=== PATIENT | male | born 1985 | race Caucasian/White ===

== ENCOUNTER 2017-02-15 14:32 | Emergency (ER) | payer MEDICAID ==
[~2017-02-15] VITALS: Ht 182.9 cm; Wt 108.9 kg
[~2017-02-15 14:32] MED LIST: COLACE100 M1 PO; COLACE100 MG PO; FLAGYL250 M1 PO; FLORASTOR250 MG PO; Insulin Aspart, Recombinant SUBQ; METFORMIN HCL500 MG PO; NORCO 5/325 MG1 TAB PO; REGLAN5 M1 PO
[2017-02-15 14:36] VITALS: BP 134/57
--- NOTE | 2017-02-15 16:30 | NUR ---
Pt taken to bed 8.
--- NOTE | 2017-02-15 16:44 | NUR ---
31/M presents to ED for evaluation of right hand laceration. Pt states he cut his hand with fiber glass. Patient states "I think there is some still in there. I can see it." Patient has no active bleeding at this time. Pt c/o 06/23 pain. Pt is AOX4, ambulatory with steady gait. VSS.
--- NOTE | 2017-02-15 17:36 | NUR ---
Patient being evaluated by physician at bedside.
[2017-02-15] MEDS ORDERED: LIDOCAINE 1% 500 MG/50 ML VIAL INJ ONE (17:40)
[2017-02-15] MEDS ORDERED: LIDOCAINE 1% ED 50 ML ONE (17:43)
--- NOTE | 2017-02-15 17:45 | NUR ---
WOUND SUTURED BY ERMD.PATIENT TOLERATED.DRESSED WITH NEOSPORIN OINT.
[2017-02-15] MEDS ORDERED: BACITRACIN OINT 500 UNITS/GM PKT TP ONE (17:53)
[2017-02-15 18:05] VITALS: BP 164/96
--- NOTE | 2017-02-15 18:05 | NUR ---
Chart checked and completed. The patient's care was reviewed and supervised by Celine Alegre RN.
== END 2017-02-15 18:05 | disposition home or self-care (01) ==
LOC: MED 14:32
DX: S61.421A Laceration with foreign body of right hand, initial encounter (principal); F17.200 Nicotine dependence, unspecified, uncomplicated; W22.8XXA Striking against or struck by other objects, initial encounter; Y93.89 Activity, other specified; Y92.89 Other specified places as the place of occurrence of the external cause; Y99.8 Other external cause status
CPT/HCPCS: 90471; 90715; 99284; J2001

== ENCOUNTER 2018-10-02 11:13 | Emergency (ER) | payer SELFPAY ==
[~2018-10-02] VITALS: Ht 188 cm; Wt 108.9 kg
[~2018-10-02 11:13] MED LIST changes: +ACET-8386 PO; -COLACE100 M1 PO; -COLACE100 MG PO; +DOCU-300 PO; -FLAGYL250 M1 PO; +FLOR250 PO; -FLORASTOR250 MG PO; +METF-988 PO; -METFORMIN HCL500 MG PO; +METO-485 PO; +METR250T2 PO; -NORCO 5/325 MG1 TAB PO; -REGLAN5 M1 PO
[2018-10-02 11:15] VITALS: BP 119/73
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
[2018-10-02] MEDS ORDERED: KETOROLAC 60 MG/2 ML VIAL IM ONE (11:40)
[2018-10-02] MEDS ORDERED: LIDOCAINE 1% ***ER ONLY *** 10 MG/ML VIAL INJ ONE (11:40)
[2018-10-02] MEDS ORDERED: BACITRACIN OINT 500 UNITS/GM PKT TP ONE (11:40)
[2018-10-02] MEDS ORDERED: LIDOCAINE MPF 1% - 5 mL VIAL 10 ML ONE (11:52)
--- NOTE | 2018-10-02 12:00 | NUR ---
DR CROWDER AT BEDSIDE.
[2018-10-02 12:48] VITALS: BP 119/73
== END 2018-10-02 12:49 | disposition home or self-care (01) ==
LOC: MED 11:13
DX: S61.211A Laceration without foreign body of left index finger without damage to nail, initial encounter (principal); S61.210A Laceration without foreign body of right index finger without damage to nail, initial encounter; F17.200 Nicotine dependence, unspecified, uncomplicated; E11.9 Type 2 diabetes mellitus without complications; Z79.84 Long term (current) use of oral hypoglycemic drugs; Z79.4 Long term (current) use of insulin; Z79.899 Other long term (current) drug therapy; W26.0XXA Contact with knife, initial encounter; Y93.89 Activity, other specified; Y92.89 Other specified places as the place of occurrence of the external cause; Y99.8 Other external cause status
CPT/HCPCS: 12002; 96372; 99283; J1885; J2001